=== PATIENT | female | born 2000 | race Caucasian/White ===

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

== ENCOUNTER → 2022-02-12 | Outpatient (REF) ==
[~2022-02-12] MED LIST changes: +PRD20T PO
--- NOTE | 2022-02-12 14:35 | Diagnostic Imaging Report ---
INDICATION: Left ankle pain. TECHNIQUE: AP, oblique, and lateral views of the left ankle were obtained. FINDINGS: No fracture or acute bony abnormality is seen. Soft tissue swelling is noted. IMPRESSION: Negative left ankle. Dictated by: Dictated on workstation # [id number]
== END ==
LOC: OCC 14:19
PROVIDERS: ATTEND Family Medicine
DX: M25.572 Pain in left ankle and joints of left foot (principal)
CPT/HCPCS: 73610

== ENCOUNTER 2023-01-02 11:59 | Emergency (ER) | payer MEDICAID ==
[~2023-01-02] VITALS: Ht 165.1 cm; Wt 72.6 kg
--- NOTE | 2023-01-02 12:38 | ED Abdominal Pain ---
General Stated Complaint: ABD PAIN | VOMITING Source of Information: Patient Exam Limitations: No Limitations History of Present Illness Date Seen by Provider: Jan 02, 2023 Time Seen by Provider: 12:02 Initial Comments 22-year-old female presents with complaints of nausea, vomiting, diarrhea, and abdominal pain for the last year. States she does not have any pain at this time. Reports pain is mostly in the right upper quadrant and is triggered by greasy food. States at times she has cramping throughout her whole abdomen. Also complains of bloating at times. Denies fever, chest pain, shortness of air, dysuria, vaginal bleeding/discharge. Last period was the end of last month. Denies any past medical/surgical history, does not take any medications. Allergies and Home Medications Allergies Coded Allergies: No Known Drug Allergies (Unverified , 07/24/09) Patient Home Medication List Home Medication List Reviewed: Yes Hydrocodone Bit/Acetaminophen (Lortab 5 Mg Tablet) 1 Each Tablet, 1 EACH PO Q4H PRN for PAIN Prescribed by: JEAN PAUL CULVER on 04/26/172045 Hydrocodone Bit/Acetaminophen (Lortab 5 Mg Tablet) 1 Tab Tab, 1 EACH PO Q4H PRN for PAIN-MODERATE Prescribed by: DAMON KIM on 06/26/19 0135 Nitrofurantoin Monohyd/M-Cryst (Macrobid 100 mg Capsule) 100 Mg Capsule, 100 MG PO BID Prescribed by: DAMON KIM on 06/26/19 013 Ondansetron (Ondansetron Odt) 4 Mg Tab.rapdis, 4 MG SL Q4H PRN for NAUSEA/VOMITING Prescribed by: Nereyda Siddiqui on 01/02/23 1329 Prednisone (Prednisone) 20 Mg Tab, 40 MG PO DAILY Prescribed by: BRAD LI on 07/19/21 190 Review of Systems Review of Systems Constitutional: see HPI Past Blblgfv-Vpbvlo-Jctztc Hx Seasonal Allergies Seasonal Allergies: No Past Medical History Surgeries: No Respiratory: No Cardiac: No Neurological: No Reproductive Disorders: No Genitourinary: No Gastrointestinal: No Musculoskeletal: No Endocrine: No HEENT: No Cancer: No Psychosocial: No Integumentary: No Blood Disorders: No Physical Exam Vital Signs Vital Signs - First Documented 01/02/23 01/02/23 12:00 13:41 Temp 36.2 Pulse 63 Resp 16 B/P (MAP) 118/77 (91) Pulse Ox 100 O2 Delivery Room Air Capillary Refill : Height/Weight/BMI Height: 5'5.00" Weight: 145lbs. oz. 65.709379ai; 25.00 BMI Method:Stated General Appearance: WD/WN, no apparent distress Neck: supple, normal inspection Respiratory: lungs clear, normal breath sounds, no respiratory distress, no accessory muscle use Cardiovascular: regular rate, rhythm, no edema, no gallop, no JVD, no murmur Gastrointestinal: normal bowel sounds, soft, no organomegaly, no pulsatile mass, tenderness (Mild RUQ tenderness) Extremities: normal range of motion, normal inspection Neurologic/Psychiatric: alert, normal mood/affect, oriented x 3 Skin: normal color, warm/dry Procedures/Interventions Suture Size: 5-0 Progress/Results/Core Measures Results/Orders Lab Results Laboratory Tests Test 01/02/23 12:32 Range/Units White Blood Count 6.2 4.3-11.0 10^3/uL Red Blood Count 4.88 3.80-5.11 10^6/uL Hemoglobin 15.6 11.5-16.0 g/dL Hematocrit 45 35-52 % Mean Corpuscular Volume 91 80-99 fL Mean Corpuscular Hemoglobin 32 25-34 pg Mean Corpuscular Hemoglobin Concent 35 32-36 g/dL Red Cell Distribution Width 11.2 10.0-14.5 % Platelet Count 287 130-400 10^3/uL Mean Platelet Volume 9.2 9.0-12.2 fL Immature Granulocyte % (Auto) 0 % Neutrophils (%) (Auto) 52 42-75 % Lymphocytes (%) (Auto) 33 12-44 % Monocytes (%) (Auto) 12 0-12 % Eosinophils (%) (Auto) 2 0-10 % Basophils (%) (Auto) 1 0-10 % Neutrophils # (Auto) 3.2 1.8-7.8 10^3/uL Lymphocytes # (Auto) 2.1 1.0-4.0 10^3/uL Monocytes # (Auto) 0.7 0.0-1.0 10^3/uL Eosinophils # (Auto) 0.1 0.0-0.3 10^3/uL Basophils # (Auto) 0.0 0.0-0.1 10^3/uL Immature Granulocyte # (Auto) 0.0 0.0-0.1 10^3/uL Urine Color YELLOW Urine Clarity CLEAR Urine pH 6.0 5-9 Urine Specific Babcock >=1.030 1.016-1.022 Urine Protein NEGATIVE NEGATIVE Urine Glucose (UA) NEGATIVE NEGATIVE Urine Ketones NEGATIVE NEGATIVE Urine Nitrite NEGATIVE NEGATIVE Urine Bilirubin NEGATIVE NEGATIVE Urine Urobilinogen 1.0 < = 1.0 MG/DL Urine Leukocyte Esterase TRACE H NEGATIVE Urine RBC (Auto) TRACE-I H NEGATIVE Urine RBC RARE /HPF Urine WBC RARE /HPF Urine Squamous Epithelial Cells 2-5 /HPF Urine Crystals NONE /LPF Urine Bacteria NEGATIVE /HPF Urine Casts NONE /LPF Urine Mucus SMALL H /LPF Urine Culture Indicated NO Urine Test NEGATIVE NEGATIVE Sodium Level 136 135-145 MMOL/L Potassium Level 3.5 L 3.6-5.0 MMOL/L Chloride Level 102 98-107 MMOL/L Carbon Dioxide Level 25 21-32 MMOL/L Anion Gap 9 5-14 MMOL/L Blood Urea Nitrogen 9 7-18 MG/DL Creatinine 0.80 0.60-1.30 MG/DL Estimat Glomerular Filtration Rate 108 BUN/Creatinine Ratio 11 Glucose Level 80 70-105 MG/DL Calcium Level 9.3 8.5-10.1 MG/DL Corrected Calcium 8.9 8.5-10.1 MG/DL Total Bilirubin 0.3 0.1-1.0 MG/DL Aspartate Amino Transf (AST/SGOT) 28 5-34 U/L Alanine Aminotransferase (ALT/SGPT) 32 0-55 U/L Alkaline Phosphatase 89 40-136 U/L Total Protein 8.1 6.4-8.2 GM/DL Albumin 4.5 3.2-4.5 GM/DL Amylase Level 57 25-125 U/L Lipase 32 8-78 U/L My Orders Orders - NEREYDA SIDDIQUI APRN Ua Culture If Indicated (01/02/23 12:01) Urine Bedside (01/02/23 12:01) Comprehensive Metabolic Panel (01/02/23 12:33) Lipase (01/02/23 12:33) Amylase (01/02/23 12:33) Cbc With Automated Diff (01/02/23 12:33) Us Gallbladder [id number] (01/02/23 12:33) Hcg,Qualitative Urine (01/02/23 12:49) Vital Signs/I&O 01/02/23 01/02/23 12:00 13:41 Temp 36.2 36.0 Pulse 63 90 Resp 16 17 B/P (MAP) 118/77 (91) 122/75 Pulse Ox 100 O2 Delivery Room Air Room Air Progress Progress Note #1: Time: 12:37 Progress Note Patient seen and evaluated, sitting comfortably on bed, no acute distress. On exam and symptoms, differential diagnosis includes but is not limited to, cholelithiasis, GERD, pancreatitis peptic ulcer disease, gastritis, Irritable bowel. Work-up initiated including CBC, CMP, amylase, lipase, UA, UCG, gallbladder ultrasound. Progress Note #2: Time: 13:27 Progress Note Labs and ultrasound reviewed. CBC grossly normal, WBC 6.2, hemoglobin 15.6. CMP shows slightly decreased potassium at 3.5, patient instructed to increase potassium in her diet. Lipase and amylase normal. UA shows trace leukocytes, trace RBCs, rare WBCs, 2-5 squamous epithelial cells, nitrates and bacteria negative. Will not treat for UTI due to lack of symptoms. Ultrasound negative for abnormalities. Discussed results with patient. Considered CT abdomen pelvis, but labs normal, exam normal. Instructed patient to follow-up with primary care provider, return precautions given. Patient asked for prescription for nausea medicine, Zofran described. Diagnostic Imaging Diagonstic Imaging: Ultrasound Plain Films/CT/US/NM/MRI: abdomen Comments [facility], [place] NAME: TERESAWILLIE R [facility] REC#: [id number] PT STATUS: REG ER : 2002 PHYSICIAN: NEREYDA SIDDIQUI APRN ADMIT DATE: 01/02/23/ER Draft Date of Exam:01/02/23 US GALLBLADDER [id number] PROCEDURE: US Gallbladder. TECHNIQUE: Multiple real-time grayscale images were obtained over the right upper quadrant in various projections. INDICATION: Right upper quadrant pain. FINDINGS: The gallbladder appeared normal. No stone or sludge. The liver parenchyma is normal. No intra- or extra-hepatic bile duct dilatation. Portal vein is patent and showed normal directional flow. No ascites or perihepatic fluid collection. The visible portions of the pancreas, aorta, and IVC appeared unremarkable. The unobstructed right kidney is normal in size, cortical thickness, and echotexture. IMPRESSION: Normal right upper quadrant ultrasound. Dictated on workstation # [id number] Dict: 01/02/23 1321 Trans: 01/02/23 1325 [id number] Interpreted by: CHRISTI SCOTT Electronically signed by: Departure Impression Primary Impression: Diarrhea Additional Impression: Vomiting Disposition: HOME, SELF-CARE Condition: Stable Departure-Patient Inst. Decision time for Depature: 13:27 Referrals: NO,LOCAL PHYSICIAN (PCP/Family) Primary Care Physician Patient Instructions: Diarrhea in Adolescents and Adults, High Potassium Diet Add. Discharge Instructions: Return for worsening pain, recurrent vomiting, recurrent diarrhea, high fevers, or any other new, concerning or worsening symptoms. Increase your potassium intake in your diet, your potassium was slightly low here today. Take Zofran as needed for nausea, it may cause constipation so only take when needed. Follow-up with your primary care provider. Scripts Ondansetron (Ondansetron Odt) 4 Mg Tab.rapdis 4 MG SL Q4H PRN for NAUSEA/VOMITING, #10 TAB Prov: NEREYDA SIDDIQUI APRN 01/02/23 NEREYDA SIDDIQUI APRN Jan 02, 2023 12:38
[2023-01-02 12:45] LABS: BILIRUBIN,URINE NEGATIVE (NEGATIVE); CLARITY,URINE CLEAR; COLOR,URINE YELLOW; GLUCOSE, URINE (UA) NEGATIVE (NEGATIVE); KETONES,URINE NEGATIVE (NEGATIVE); LEUKOCYTE ESTERASE ,URINE TRACE (NEGATIVE); NITRITE,URINE NEGATIVE (NEGATIVE); PROTEIN,URINE NEGATIVE (NEGATIVE)
[2023-01-02 12:52] LABS: BACTERIA,URINE NEGATIVE /HPF; BASOPHILS % (AUTO) 1 % (0-10); EOSINOPHILS # (AUTO) 0.1 10^3/uL (0.0-0.3); EOSINOPHILS % (AUTO) 2 % (0-10); HEMATOCRIT 45 % (35-52); HEMOGLOBIN 15.6 g/dL (11.5-16.0); LYMPHOCYTES # (AUTO) 2.1 10^3/uL (1.0-4.0); LYMPHOCYTES % (AUTO) 33 % (12-44); MEAN CORPUSCULAR HEMOGLOBIN 32 pg (25-34); MEAN CORPUSCULAR HGB CONC 35 g/dL (32-36); MEAN CORPUSCULAR VOLUME 91 fL (80-99); MEAN PLATELET VOLUME 9.2 fL (9.0-12.2); MONOCYTES # (AUTO) 0.7 10^3/uL (0.0-1.0); MONOCYTES % (AUTO) 12 % (0-12); NEUTROPHILS # (AUTO) 3.2 10^3/uL (1.8-7.8); NEUTROPHILS % (AUTO) 52 % (42-75); PLATELET COUNT 287 10^3/uL (130-400); RBC,URINE RARE /HPF; WBC,URINE RARE /HPF; WHITE BLOOD COUNT 6.2 10^3/uL (4.3-11.0)
[2023-01-02 13:06] LABS: ALBUMIN 4.5 GM/DL (3.2-4.5); POTASSIUM 3.5 MMOL/L (3.6-5.0)
[2023-01-02 13:07] LABS: CALCIUM 9.3 MG/DL (8.5-10.1)
[2023-01-02 13:08] LABS: TOTAL PROTEIN 8.1 GM/DL (6.4-8.2)
[2023-01-02 13:10] LABS: BILIRUBIN,TOTAL 0.3 MG/DL (0.1-1.0)
[2023-01-02 13:12] LABS: CREATININE SERUM 0.8 MG/DL (0.60-1.30)
--- NOTE | 2023-01-02 13:25 | Diagnostic Imaging Report ---
PROCEDURE: US Gallbladder. TECHNIQUE: Multiple real-time grayscale images were obtained over the right upper quadrant in various projections. INDICATION: Right upper quadrant pain. FINDINGS: The gallbladder appeared normal. No stone or sludge. The liver parenchyma is normal. No intra- or extra-hepatic bile duct dilatation. Portal vein is patent and showed normal directional flow. No ascites or perihepatic fluid collection. The visible portions of the pancreas, aorta, and IVC appeared unremarkable. The unobstructed right kidney is normal in size, cortical thickness, and echotexture. IMPRESSION: Normal right upper quadrant ultrasound. Dictated by: Dictated on workstation # [id number]
[2023-01-02] MEDS ORDERED: ONDA4TAB11 SL (13:29)
[2023-01-02 13:41] VITALS: BP 122/75
== END 2023-01-02 13:41 | disposition home or self-care (01) ==
LOC: EDUNIT# 11:59 → ER 12:01
DX: R19.7 Diarrhea, unspecified (principal); R11.2 Nausea with vomiting, unspecified; R10.11 Right upper quadrant pain; E87.6 Hypokalemia; Z28.311 Partially vaccinated for COVID-19
CPT/HCPCS: 36415; 76705; 80053; 81000; 82150; 83690; 84703; 85025